=== PATIENT | female | born 1945 | race Caucasian/White ===

== ENCOUNTER → 2020-06-07 | Outpatient (CLI) | payer OTHER ==
[~2020-06-07] MED LIST: AIRDUO DIGIHAL1 EAC2 INH; AMLO5 PO; ASPI81CH PO; Bentyl10 MG PO; FURO40 PO; GABA100 PO; HUMULIN R100 UNIT/2 SC; ISOSORBIDE MONO60 MG PO; LEVSOD75 PO; LISI20 PO; MONT10T PO; NITR.4SL SL; NOVOLIN 70100 UNIT/3 SC; PLAVIX75 MG PO; POTA10T PO; TRAZ100 PO
[2020-06-07 14:07] LABS: Appearance, Urine Cloudy (Clear); Bilirubin, Urine Neg (Neg); Blood, Urine 2+ (Neg); Color, Urine Yellow (P-Yellow); Glucose Qualitative, Urine Neg (Neg); Ketones, Urine Neg (Neg); Leukocyte Esterase, Urine 3+ (Neg); Nitrite, Urine Pos (Neg); Protein, Urine 2+ (Neg); Specific Gravity, Urine 1.015 (1.003-1.022); Urobilinogen, Urine NORM (Normal)
[2020-06-07 14:21] LABS: Bacteria Many /hpf; Squamous Epithelial Cells Few /hpf (Few); White Blood Cells, Urine TNTC /hpf (0-5)
== END | disposition home or self-care (01) ==
LOC: LAB 11:30 → LAB SHORT 11:30
PROVIDERS: Nurse Practitioner Family
DX: R30.9 Painful micturition, unspecified (principal)
CPT/HCPCS: 81001; 87077; 87086; 87186

== ENCOUNTER 2020-06-10 14:23 | Inpatient (IN) | payer OTHER ==
[~2020-06-10] VITALS: Ht 165.1 cm; Wt 229.0 kg
[2020-06-10 14:50] LABS: BASOPHILS ABSOLUTE AUTO 0.11 K/mm3 (0.00-0.23); BASOPHILS PERCENT AUTO 1 % (0-2); EOSINOPHILS ABSOLUTE AUTO 0.28 K/mm3 (0.00-0.68); EOSINOPHILS PERCENT AUTO 2 % (0-6); Hematocrit 48.6 % (33.0-51.0); Hemoglobin 14.7 g/dL (11.5-16.0); IMMATURE GRAN ABSOLUTE AUTO 0.16 K/mm3 (0.00-0.10); IMMATURE GRAN PERCENT AUTO 1 % (0-1); LYMPHOCYTES PERCENT AUTO 27 % (21-46); MONOCYTES ABSOLUTE AUTO 1.36 K/mm3 (0.16-1.47); MONOCYTES PERCENT AUTO 11 % (4-13); Mean Corpuscular HGB 29.7 pg (26.0-34.0); Mean Corpuscular HGB Conc 30.2 g/dL (31.5-36.5); Mean Corpuscular Volume 98 fL (80-100); Mean Platelet Volume 8.9 fL (9.1-12.4); NEUTROPHILS ABSOLUTE AUTO 7.51 K/mm3 (1.96-9.15); NEUTROPHILS PERCENT AUTO 58 % (41-73); NRBC ABSOLUTE 0.08 K/mm3 (0.00-0.02); NRBC Auto 0.6 /100 WBC (0.0-0.2); Platelet Count 225 K/mm3 (150-400); RDW Coefficient Variation 13.7 % (11.7-14.2); RDW Standard Deviation 49.2 fL (35.1-46.3); Red Blood Cell Count 4.95 M/mm3 (3.80-5.20); White Blood Cell Count 12.92 K/mm3 (4.00-11.30)
[2020-06-10 15:11] LABS: Albumin, Blood 2.8 g/dL (3.4-5.0); Albumin/Globulin Ratio 0.7 (0.8-1.8); Bilirubin, Total 0.4 mg/dL (0.1-1.0); Bun/Creatinine Ratio 21.1 (12.0-20.0); Calcium, Blood 10.1 mg/dL (8.5-10.1); Creatinine, Blood 1.33 mg/dL (0.40-1.00); Globulin, Blood 4.2 g/dL (2.2-4.0); Potassium, Blood 5.7 mmol/L (3.5-5.5); Troponin I 0.017 ng/mL (0.000-0.040)
[2020-06-10] MEDS ORDERED: PLAVIX75 MG PO (17:59)
[2020-06-10] MEDS ORDERED: NOVOLIN 70100 UNIT/3 SC (17:59)
[2020-06-10] MEDS ORDERED: GABA100 PO (17:59)
[2020-06-10] MEDS ORDERED: LISI20 PO (17:59)
[2020-06-10] MEDS ORDERED: MONT10T PO (18:00)
[2020-06-10] MEDS ORDERED: ISOSORBIDE MONO60 MG PO (18:00)
[2020-06-10] MEDS ORDERED: HUMULIN R100 UNIT/2 SC (18:06)
[2020-06-10 20:25] LABS: PO2 Arterial 69.3 mmHg (80-100); pH Blood Arterial 7.28 (7.35-7.45)
[2020-06-10 20:26] LABS: PCO2 Arterial 74.1 mmHg (35-45)
[2020-06-10 21:12] LABS: International Normalized Ratio 0.99; Prothrombin Time Results 10.6 Sec (9.7-11.5)
[2020-06-10] MEDS ORDERED: Bentyl10 MG PO (22:00)
[2020-06-11 05:02] LABS: PCO2 Arterial 75 mmHg (35-45); PO2 Arterial 74.1 mmHg (80-100); pH Blood Arterial 7.28 (7.35-7.45)
[2020-06-11 05:09] LABS: BASOPHILS ABSOLUTE AUTO 0.12 K/mm3 (0.00-0.23); BASOPHILS PERCENT AUTO 1 % (0-2); EOSINOPHILS ABSOLUTE AUTO 0.35 K/mm3 (0.00-0.68); EOSINOPHILS PERCENT AUTO 3 % (0-6); Hematocrit 45.5 % (33.0-51.0); Hemoglobin 13.5 g/dL (11.5-16.0); IMMATURE GRAN ABSOLUTE AUTO 0.05 K/mm3 (0.00-0.10); IMMATURE GRAN PERCENT AUTO 0 % (0-1); LYMPHOCYTES PERCENT AUTO 30 % (21-46); MONOCYTES ABSOLUTE AUTO 1.35 K/mm3 (0.16-1.47); MONOCYTES PERCENT AUTO 12 % (4-13); Mean Corpuscular HGB 29.8 pg (26.0-34.0); Mean Corpuscular HGB Conc 29.7 g/dL (31.5-36.5); Mean Corpuscular Volume 100 fL (80-100); NEUTROPHILS ABSOLUTE AUTO 6.04 K/mm3 (1.96-9.15); NEUTROPHILS PERCENT AUTO 53 % (41-73); NRBC ABSOLUTE 0.07 K/mm3 (0.00-0.02); NRBC Auto 0.6 /100 WBC (0.0-0.2); Platelet Count 194 K/mm3 (150-400); RDW Coefficient Variation 13.7 % (11.7-14.2); RDW Standard Deviation 50.6 fL (35.1-46.3); Red Blood Cell Count 4.53 M/mm3 (3.80-5.20); White Blood Cell Count 11.31 K/mm3 (4.00-11.30)
[2020-06-11 05:41] LABS: Bun/Creatinine Ratio 20.3 (12.0-20.0); Calcium, Blood 9.7 mg/dL (8.5-10.1); Creatinine, Blood 1.58 mg/dL (0.40-1.00); Potassium, Blood 5.2 mmol/L (3.5-5.5)
--- NOTE | 2020-06-11 06:13 | NUR ---
SHIFT SUMMARY RECIEVED REPORT FROM NATHAN SAL. PATIENT ARRIVED TO FLOOR VIA STRETCHER AND WAS SLID TO THE BED. SWITCHED TO BARIATRIC BED DUE TO PATIENT SIZE. PATIENT DENIES CHEST PAIN FOR ME BUT STATES SHE NORMALLY ACHES ALL OVER. PT STATES SHE IS INCONTINENT OF BLADDER BUT USES [facility]SC FOR BOWEL MOVEMENTS AND TRANSFERS WITH A WALKER. TWO PERSON ASSIST WITH REPOSITONING AND BRIEF CHANGES. PATIENT HAS BEEN ALERT AND ORIENTED ALL SHIFT. VSS, NO ACUTE CHANGES. 02 SATS >90% ON 3L VIA NC. CALL LIGHT IN REACH.
--- NOTE | 2020-06-11 08:00 | NUR ---
PT LAYING IN BED WATCHING TV, A/OX3, PLEASANT AND COOPERATIVE WITH CARE, FOLLOWS COMMANDS WELL, DENIES PAIN, STATES SHE HAD A GOOD NIGHT, BUT CAME IN LAST NIGHT, LUNGS ARE CLEAR DIM IN BASES, RESP EVEN AND UNLABORED, NO COUGH NOTED, IS ON 3 LITERS 02 VIA N/C, HRR, TELE IN PLACE RUNNING SR PER MONITOR, SEE STRIP, 1+ PITTING EDEMA NOTED TO B/E LE, PPP+1, CAP REFILL <3SEC, VS STABLE, AFEBRILE, IV SITE IS CLEAR AND PATENT, BTX4, ABD FLAT SOFT NONTENDER, VOIDS WITH OUT DIFF, SKIN HAS A SORE TO THE LEFT SIDE OF HER PANIS, MAEW, IS BED REST/BOUND, YUMIKO, WILL REPOSITION HER REGULARLY, CALL LIGHT IN REACH.
--- NOTE | 2020-06-11 09:35 | NUR ---
Echocardiogram using 0.75ml of Definity contrast performed.
--- NOTE | 2020-06-11 12:25 | NUR ---
Update: Tele notified RN that Pt had a run of V-Tack. Pt assessed. States that she doesn't feel any different then she has since her echo. Physician was notified. Pt sitting up finishing lunch. Call light in reach. Will monitor.
[2020-06-11] MEDS ORDERED: ASPI81CH PO (16:15)
[2020-06-11] MEDS ORDERED: AMLO5 PO (16:16)
[2020-06-11] MEDS ORDERED: TRAZ100 PO (16:17)
[2020-06-11] MEDS ORDERED: LEVSOD75 PO (16:20)
[2020-06-11] MEDS ORDERED: NITR.4SL SL (16:21)
--- NOTE | 2020-06-11 18:41 | NUR ---
pt doing well, no complaints, placed a urinary device on her anthony area to suction the urine, to help keep her dryer, spouce was in to see her today, no acute changes this shift, call kaylie in reach.
--- NOTE | 2020-06-11 21:55 | NUR ---
ASSUMED CARE OF PATIENT AT APPROXIMATELY 1905 FROM ANDRA Piper RN. PATIENT ALERT AND ORIENTED X4. PATIENT REPORTS PAIN WHEN MOVING DUE TO SORE ON LEFT HIP THAT SHE SAID WAS BLISTERS THAT ARE DRAINING. PATIENT ABLE TO TURN ON SIDE WITH ASSISTANCE WITH STAFF. PATIENT DENIES DIZZINESS OR NAUSEA. SB W/ 1ST DEGREE AND PVC'S ON TELE; OXYGEN SATURATION ABOVE 90% ON 1LPM VIA NC TITRATED DOWN FROM 3 AT START OF SHIFT; CPAP IN ROOM FOR SLEEPING. PATIENT REPORTS SHE DOESNT SLEEP WELL. PUREWICK CHANGED; BED SATURATED IN URINE; LIFT SHEET CHANGED; NYSTATIN APPLIED TO FOLDS. PIV S/L. PATIENT CURRENTLY RESTING IN BED; CALL LIGHT IN REACH; BED IN LOWEST POSISTION.
[2020-06-12 04:45] LABS: Hematocrit 44.8 % (33.0-51.0); Hemoglobin 13.4 g/dL (11.5-16.0); Mean Corpuscular HGB 29.8 pg (26.0-34.0); Mean Corpuscular HGB Conc 29.9 g/dL (31.5-36.5); Mean Corpuscular Volume 100 fL (80-100); NRBC ABSOLUTE 0.03 K/mm3 (0.00-0.02); NRBC Auto 0.3 /100 WBC (0.0-0.2); Platelet Count 171 K/mm3 (150-400); RDW Coefficient Variation 13.6 % (11.7-14.2); RDW Standard Deviation 50.2 fL (35.1-46.3); White Blood Cell Count 10.25 K/mm3 (4.00-11.30)
[2020-06-12 05:07] LABS: Albumin, Blood 2.4 g/dL (3.4-5.0); Anion Gap 5 mmol/L (6-16); Blood Urea Nitrogen 33 mg/dL (8-24); Bun/Creatinine Ratio 21.9 (12.0-20.0); CO2, Blood 30 mmol/L (21-32); Calcium, Blood 9.2 mg/dL (8.5-10.1); Chloride, Blood 104 mmol/L (98-108); Creatinine, Blood 1.51 mg/dL (0.40-1.00); Glomerular Filtration Rate 36 (60-); Glucose, Blood 129 mg/dL (70-99); Magnesium, Blood 1.9 mg/dL (1.6-2.4); Phosphorus, Blood 3.6 mg/dL (2.5-4.9); Potassium, Blood 4.5 mmol/L (3.5-5.5); Sodium, Blood 139 mmol/L (136-145)
[2020-06-12 05:21] LABS: PCO2 Arterial 67.4 mmHg (35-45); PO2 Arterial 61.7 mmHg (80-100); pH Blood Arterial 7.33 (7.35-7.45)
--- NOTE | 2020-06-12 06:30 | NUR ---
PATIENT SLEPT ABOUT SEVEN HOURS LAST NIGHT. DID NOT SLEEP MUCH AFTER 3 AM DUE TO FEELING NAUSEOUS AND SWEATY; REFUSED ZOFRAN. VSS. NO OTHER ACUTE CHANGES TO REPORT.
--- NOTE | 2020-06-12 08:00 | NUR ---
PT LAYING IN BED WATCHING TV, SHE IS A/OX3, PLEASANT AND COOPERATIVE WITH CARE, FOLLOWS COMMANDS WELL, DENIES COMPLAINTS, STATES SHE SLEPT WELL LAST NIGHT, BUT THE CPAP WAS NOT WORKING FOR HER, EXPLAINED THAT HER CO2 IS BETTER THIS AM, LUNGS ARE CLEAR IN UPPER MICHAUD, DIM IN BASES, RESP EVEN AND UNLABORED, NO COUGH NOTED, HRR, TELE IN PLACE RUNNING SB WITH PAC'S, TRACE EDEMA, IS IMPROVING, PPP FAINT, CAP REFILL <3SEC, VS STABLE, AFEBRILE, IV SITE IS CLEAR AND PATENT, BTX4, ABD LARGE SOFT NONTENDER, HAS A NONINDWELLING URINE DEVICE IN PLACE, SKIN HAS SOME RED AREAS UNDER PANUS, TX WITH ANTIFUNGAL AND KEEPING PILLOW CASES IN BETWEEN FOLDS, MOVES UPPER EXT WELL, HELPS TO TURN IN BED, SHE IS BED BOUND, YUMIKO, CALL LIGHT IN REACH.
--- NOTE | 2020-06-12 13:19 | NUR ---
pt had a bed bath and linen change this am, doing ok, no acute changes or needs, call light in reach.
--- NOTE | 2020-06-12 17:57 | NUR ---
PT LAYING IN BED WATCHING TV, IN GOOD SPIRITS, SPOKE TO SPOUCE ON THE PHONE, NO ACUTE CHANGES THIS SHIFT, CALL LIGHT IN REACH.
--- NOTE | 2020-06-12 22:14 | NUR ---
ASSUMED CARE OF PATIENT AT APPROXIMATELY 1910 FROM ANDRA Piper RN. PATIENT ALERT AND ORIENTED X4. PATIENT REPORTS PAIN WHEN MOVING DUE TO LEFT SIDE HURTING; PATIENT ABLE TO TURN ON SIDE WITH ASSISTANCE WITH STAFF. PATIENT DENIES DIZZINESS OR NAUSEA. SB W/ 1ST DEGREE AND PVC'S ON TELE; OXYGEN SATURATION ABOVE 90% ON 1LPM VIA NC; CPAP IN ROOM FOR SLEEPING. NYSTATIN APPLIED TO FOLDS. PIV S/L. PATIENT CURRENTLY RESTING IN BED; CALL LIGHT IN REACH; BED IN LOWEST POSISTION.
[2020-06-13 09:17] LABS: Albumin, Blood 2.6 g/dL (3.4-5.0); Anion Gap 3 mmol/L (6-16); Blood Urea Nitrogen 30 mg/dL (8-24); Bun/Creatinine Ratio 21.6 (12.0-20.0); CO2, Blood 39 mmol/L (21-32); Calcium, Blood 9.1 mg/dL (8.5-10.1); Chloride, Blood 99 mmol/L (98-108); Creatinine, Blood 1.39 mg/dL (0.40-1.00); Glomerular Filtration Rate 39 (60-); Glucose, Blood 143 mg/dL (70-99); Phosphorus, Blood 3.7 mg/dL (2.5-4.9); Potassium, Blood 4.2 mmol/L (3.5-5.5); Sodium, Blood 141 mmol/L (136-145)
--- NOTE | 2020-06-13 22:36 | NUR ---
ASSUMED CARE OF PATIENT AT APPROXIMATELY 1910 FROM NEIL Lee RN. PATIENT ALERT AND ORIENTED X4. PATIENT REPORTS PAIN WITH REPOSISTIONING; PATIENT ABLE TO TURN ON SIDE WITH ASSISTANCE WITH STAFF. PATIENT DENIES DIZZINESS OR NAUSEA. MEDICAL NO TELE STATUS; OXYGEN SATURATION ABOVE 90% ON 1LPM VIA NC. PUREWICK IN PLACE. PIV S/L. PATIENT CURRENTLY RESTING IN BED; CALL LIGHT IN REACH; BED IN LOWEST POSISTION.
[2020-06-14 05:04] LABS: Albumin, Blood 2.5 g/dL (3.4-5.0); Anion Gap 3 mmol/L (6-16); Blood Urea Nitrogen 30 mg/dL (8-24); Bun/Creatinine Ratio 21.7 (12.0-20.0); CO2, Blood 39 mmol/L (21-32); Calcium, Blood 9.2 mg/dL (8.5-10.1); Chloride, Blood 98 mmol/L (98-108); Creatinine, Blood 1.38 mg/dL (0.40-1.00); Glomerular Filtration Rate 40 (60-); Glucose, Blood 103 mg/dL (70-99); Phosphorus, Blood 3.3 mg/dL (2.5-4.9); Potassium, Blood 4.1 mmol/L (3.5-5.5); Sodium, Blood 140 mmol/L (136-145)
--- NOTE | 2020-06-14 06:13 | NUR ---
PATIENT SLEPT ABOUT EIGHT HOURS LAST NIGHT; PUREWICK CONTAMINATED WITH STOOL; ATTENDS IN PLACE FOR INCONTINENCE. NO OTHER ACUTE CHANGES TO REPORT. WILL CONTINUE TO MONITOR AND ASSESS UNTIL END OF SHIFT.
[2020-06-14] MEDS ORDERED: FURO40 PO (12:47)
[2020-06-14] MEDS ORDERED: AIRDUO DIGIHAL1 EAC2 INH (12:47)
[2020-06-14] MEDS ORDERED: POTA10T PO (12:48)
--- NOTE | 2020-06-14 15:47 | NUR ---
PT WAS DISCHARGED TO HOME TODAY WITH DISCHARGE ORDERS, PT REQUIRING 2L OF O2 PER HOME O2 EVAL RESULT, ORDER SENT TO [facility] PER WIRE WEAVER CLOTH. NO ACUTE CHANGE FOR THE SHIFT, VITALS HAS BEEN STABLE. DISCHARGE MEDICAYIONS AND INSTRUCTIONS DISCLOSED WTIH THE PT, PT VERBALIZED UNDERSTANDING. TRANSPORTATION SET UP THROUGH [facility], [facility] ARRIVED PRIOR TO DISCHARGE FOR TEMPORARY O2 CANISTER, O2 TO BE DELIVERED DIRECTLY TO HOME. ALL BELONGINGS SENT WITH PT.
== END 2020-06-14 15:35 | disposition home health service (06) | DRG 205 ==
LOC: ER 14:23 → PCU 21:31
PROVIDERS: Emergency Medicine; ADMIT Internal Medicine
PROC: 3E0234Z Introduction of Serum, Toxoid and Vaccine into Muscle, Percutaneous Approach (ICD-10-PCS; principal; 2020-06-10)
DX: E66.2 Morbid (severe) obesity with alveolar hypoventilation (principal); I50.31 Acute diastolic (congestive) heart failure; J96.21 Acute and chronic respiratory failure with hypoxia; J96.22 Acute and chronic respiratory failure with hypercapnia; I13.0 Hypertensive heart and chronic kidney disease with heart failure and stage 1 through stage 4 chronic kidney disease, or unspecified chronic kidney disease; N18.4 Chronic kidney disease, stage 4 (severe); Z68.45 Body mass index [BMI] 70 or greater, adult; N17.9 Acute kidney failure, unspecified; I71.2 Thoracic aortic aneurysm, without rupture; E11.22 Type 2 diabetes mellitus with diabetic chronic kidney disease; G89.29 Other chronic pain; E87.5 Hyperkalemia; E11.40 Type 2 diabetes mellitus with diabetic neuropathy, unspecified; Z23 Encounter for immunization; E03.9 Hypothyroidism, unspecified; I45.10 Unspecified right bundle-branch block; J45.909 Unspecified asthma, uncomplicated; I25.10 Atherosclerotic heart disease of native coronary artery without angina pectoris; I25.2 Old myocardial infarction; Z87.440 Personal history of urinary (tract) infections; Z91.19 Patient's noncompliance with other medical treatment and regimen; Z79.4 Long term (current) use of insulin; Z79.02 Long term (current) use of antithrombotics/antiplatelets
CPT/HCPCS: 36415; 36600; 71045; 80048; 80053; 80069; 82803; 82947; 83735; 83880; 84100; 84484; 85025; 85027; 85379; 85610; 85730; 93005; 93010; 93970; 94640; 94660; 94760; 94761; 94762; 96365; 96375; 97110; 97161; 99285-25; A9270; C8929; J0696; J1650; J1815; J1940; J7050; Q2038; Q9957

== ENCOUNTER → 2020-06-21 | Outpatient (CLI) | payer OTHER ==
[2020-06-21 15:45] LABS: Source, Urine Clean Catch
[2020-06-21 16:46] LABS: BASOPHILS ABSOLUTE AUTO 0.14 K/mm3 (0.00-0.23); BASOPHILS PERCENT AUTO 1 % (0-2); EOSINOPHILS ABSOLUTE AUTO 0.42 K/mm3 (0.00-0.68); EOSINOPHILS PERCENT AUTO 4 % (0-6); Hematocrit 49.2 % (33.0-51.0); Hemoglobin 15.2 g/dL (11.5-16.0); IMMATURE GRAN ABSOLUTE AUTO 0.01 K/mm3 (0.00-0.10); IMMATURE GRAN PERCENT AUTO 0 % (0-1); LYMPHOCYTES ABSOLUTE AUTO 3.92 K/mm3 (0.84-5.20); LYMPHOCYTES PERCENT AUTO 34 % (21-46); MONOCYTES ABSOLUTE AUTO 1.15 K/mm3 (0.16-1.47); MONOCYTES PERCENT AUTO 10 % (4-13); Mean Corpuscular HGB 30.2 pg (26.0-34.0); Mean Corpuscular HGB Conc 30.9 g/dL (31.5-36.5); Mean Corpuscular Volume 98 fL (80-100); Mean Platelet Volume 9.7 fL (9.1-12.4); NEUTROPHILS ABSOLUTE AUTO 5.74 K/mm3 (1.96-9.15); NEUTROPHILS PERCENT AUTO 51 % (41-73); Platelet Count 217 K/mm3 (150-400); RDW Coefficient Variation 13.2 % (11.7-14.2); RDW Standard Deviation 47.4 fL (35.1-46.3); Red Blood Cell Count 5.04 M/mm3 (3.80-5.20); White Blood Cell Count 11.38 K/mm3 (4.00-11.30)
[2020-06-21 16:49] LABS: Appearance, Urine Clear (Clear); Bilirubin, Urine Neg (Neg); Blood, Urine Neg (Neg); Color, Urine Yellow (P-Yellow); Glucose Qualitative, Urine Neg (Neg); Ketones, Urine Neg (Neg); Leukocyte Esterase, Urine Neg (Neg); Nitrite, Urine Neg (Neg); Protein, Urine Neg (Neg); Specific Gravity, Urine 1.005 (1.003-1.022); Urobilinogen, Urine NORM (Normal)
[2020-06-21 17:14] LABS: Bun/Creatinine Ratio 30.9 (12.0-20.0); Creatinine, Blood 1.39 mg/dL (0.40-1.00); Potassium, Blood 4.8 mmol/L (3.5-5.5)
== END | disposition home or self-care (01) ==
LOC: LAB HH 15:42
PROVIDERS: Nurse Practitioner Family
DX: E11.9 Type 2 diabetes mellitus without complications (principal); I11.0 Hypertensive heart disease with heart failure; I50.30 Unspecified diastolic (congestive) heart failure; N39.0 Urinary tract infection, site not specified
CPT/HCPCS: 80048; 81003; 83036; 85025

== ENCOUNTER → 2020-07-26 | Outpatient (CLI) | payer OTHER ==
[2020-07-26 15:12] LABS: Bun/Creatinine Ratio 36.1 (12.0-20.0); Calcium, Blood 9.2 mg/dL (8.5-10.1); Creatinine, Blood 1.47 mg/dL (0.40-1.00); Potassium, Blood 5.4 mmol/L (3.5-5.5)
== END | disposition home or self-care (01) ==
LOC: LAB HH 11:58
PROVIDERS: Nurse Practitioner Family
DX: I13.0 Hypertensive heart and chronic kidney disease with heart failure and stage 1 through stage 4 chronic kidney disease, or unspecified chronic kidney disease (principal); I50.30 Unspecified diastolic (congestive) heart failure; N18.4 Chronic kidney disease, stage 4 (severe)
CPT/HCPCS: 80048

== ENCOUNTER → 2020-08-11 | Outpatient (CLI) | payer OTHER ==
[2020-08-11 15:42] LABS: Bun/Creatinine Ratio 32.9 (12.0-20.0); Calcium, Blood 9.2 mg/dL (8.5-10.1); Creatinine, Blood 1.55 mg/dL (0.40-1.00)
== END | disposition home or self-care (01) ==
LOC: LAB HH 11:30 → LAB SHORT 11:30
PROVIDERS: Nurse Practitioner Family
DX: I13.0 Hypertensive heart and chronic kidney disease with heart failure and stage 1 through stage 4 chronic kidney disease, or unspecified chronic kidney disease (principal); I50.9 Heart failure, unspecified; N18.9 Chronic kidney disease, unspecified
CPT/HCPCS: 80048

== ENCOUNTER → 2021-06-14 | Outpatient (CLI) | payer OTHER ==
[2021-06-14 16:29] LABS: CHOL/HDL RATIO 4.2; Cholesterol 146 mg/dL (50-200); Free Thyroxine 1.09 ng/dL (0.70-1.60); HDL Cholesterol 35 mg/dL (>39); LDL/HDL RATIO 2.3; Low Density Lipoprotein Chol 81 mg/dL (0-110); Triglycerides 150 mg/dL (30-160); Very Low Density Lipoprot Chol 30 mg/dL (6-32)
[2021-06-15 08:11] LABS: BASO (ABSOLUTE) 0.1 x10E3/uL (0.0-0.2); BASOS 1 % (Not Estab.); EOS 5 % (Not Estab.); EOS (ABSOLUTE) 0.4 x10E3/uL (0.0-0.4); HEMATOCRIT 40.5 % (34.0-46.6); IMMATURE GRANULOCYTES 0 % (Not Estab.); LYMPHS 45 % (Not Estab.); LYMPHS (ABSOLUTE) 3.3 x10E3/uL (0.7-3.1); MCH 30.8 pg (26.6-33.0); MCHC 32.1 g/dL (31.5-35.7); MCV 96 fL (79-97); MONOCYTES 11 % (Not Estab.); MONOCYTES(ABSOLUTE) 0.8 x10E3/uL (0.1-0.9); NEUTROPHILS 38 % (Not Estab.); NEUTROPHILS (ABSOLUTE) 2.8 x10E3/uL (1.4-7.0); PLATELETS 193 x10E3/uL (150-450); RBC 4.22 x10E6/uL (3.77-5.28); RDW 12.2 % (11.7-15.4); WBC 7.3 x10E3/uL (3.4-10.8)
[2021-06-15 09:11] LABS: A/G RATIO 1.2 (1.2-2.2); BILIRUBIN, TOTAL 0.5 mg/dL (0.0-1.2); CALCIUM, SERUM 9.5 mg/dL (8.7-10.3); CREATININE, SERUM 1.72 mg/dL (0.57-1.00); ESTIM. AVG GLU (EAG) 174 mg/dL (.); GLOBULIN, TOTAL 2.9 g/dL (1.5-4.5); HEMOGLOBIN A1C 7.7 % (4.8-5.6); POTASSIUM, SERUM 5.4 mmol/L (3.5-5.2); PROTEIN, TOTAL, SERUM 6.3 g/dL (6.0-8.5); TSH 16.2 uIU/mL (0.450-4.500)
== END | disposition home or self-care (01) ==
LOC: LAB SHORT 11:40
PROVIDERS: Nurse Practitioner Family
DX: E03.9 Hypothyroidism, unspecified (principal); E78.5 Hyperlipidemia, unspecified; Z79.4 Long term (current) use of insulin
CPT/HCPCS: 36415; 80053; 80061; 83036; 84439; 84443; 85025

== ENCOUNTER → 2021-09-29 | Outpatient (CLI) | payer OTHER ==
[2021-09-29 12:22] LABS: BASOPHILS ABSOLUTE AUTO 0.09 K/mm3 (0.00-0.23); BASOPHILS PERCENT AUTO 1 % (0-2); EOSINOPHILS ABSOLUTE AUTO 0.34 K/mm3 (0.00-0.68); EOSINOPHILS PERCENT AUTO 4 % (0-6); Hemoglobin 11.8 g/dL (11.5-16.0); IMMATURE GRAN ABSOLUTE AUTO 0.01 K/mm3 (0.00-0.10); IMMATURE GRAN PERCENT AUTO 0 % (0-1); LYMPHOCYTES ABSOLUTE AUTO 3.04 K/mm3 (0.84-5.20); LYMPHOCYTES PERCENT AUTO 40 % (21-46); MONOCYTES ABSOLUTE AUTO 0.94 K/mm3 (0.16-1.47); MONOCYTES PERCENT AUTO 12 % (4-13); Mean Corpuscular HGB 31.1 pg (26.0-34.0); Mean Corpuscular HGB Conc 31.1 g/dL (31.5-36.5); Mean Corpuscular Volume 100 fL (80-100); Mean Platelet Volume 9.9 fL (9.1-12.4); NEUTROPHILS ABSOLUTE AUTO 3.28 K/mm3 (1.96-9.15); NEUTROPHILS PERCENT AUTO 43 % (41-73); Platelet Count 226 K/mm3 (150-400); RDW Coefficient Variation 12.9 % (11.7-14.2); RDW Standard Deviation 47.6 fL (35.1-46.3); Red Blood Cell Count 3.79 M/mm3 (3.80-5.20)
[2021-09-29 12:24] LABS: Alanine Aminotransfer (ALT/SGP 42 U/L (12-78); Albumin, Blood 2.9 g/dL (3.4-5.0); Albumin/Globulin Ratio 0.7 (0.8-1.8); Alk Phos 138 U/L (50-136); Anion Gap 3 mmol/L (6-16); Aspartate Aminotrans (AST/SGOT 46 U/L (12-37); Bilirubin, Total 0.4 mg/dL (0.1-1.0); Blood Urea Nitrogen 49 mg/dL (8-24); Bun/Creatinine Ratio 27.4 (12.0-20.0); CHOL/HDL RATIO 3.6; CO2, Blood 41 mmol/L (21-32); Calcium, Blood 9.7 mg/dL (8.5-10.1); Chloride, Blood 95 mmol/L (98-108); Cholesterol 136 mg/dL (50-200); Creatinine, Blood 1.79 mg/dL (0.40-1.00); Globulin, Blood 3.9 g/dL (2.2-4.0); Glomerular Filtration Rate 28 (60-); Glucose, Blood 140 mg/dL (70-99); HDL Cholesterol 38 mg/dL (>39); LDL/HDL RATIO 1.8; Low Density Lipoprotein Chol 67 mg/dL (0-110); Potassium, Blood 4.5 mmol/L (3.5-5.5); Sodium, Blood 139 mmol/L (136-145); Total Protein, Blood 6.8 g/dL (6.4-8.2); Triglycerides 154 mg/dL (30-160); Very Low Density Lipoprot Chol 30 mg/dL (6-32)
== END | disposition home or self-care (01) ==
LOC: LAB SHORT 11:12 → LAB 11:12
PROVIDERS: Nurse Practitioner Family
DX: E03.9 Hypothyroidism, unspecified (principal); E78.5 Hyperlipidemia, unspecified; E11.9 Type 2 diabetes mellitus without complications; Z79.4 Long term (current) use of insulin
CPT/HCPCS: 80053; 80061; 83036; 84443; 85025

== ENCOUNTER → 2021-12-22 | Outpatient (CLI) | payer OTHER ==
[2021-12-22 15:08] LABS: BASOPHILS ABSOLUTE AUTO 0.05 K/mm3 (0.00-0.23); BASOPHILS PERCENT AUTO 1 % (0-2); EOSINOPHILS ABSOLUTE AUTO 0.24 K/mm3 (0.00-0.68); EOSINOPHILS PERCENT AUTO 4 % (0-6); Hematocrit 35.8 % (33.0-51.0); Hemoglobin 11.1 g/dL (11.5-16.0); IMMATURE GRAN ABSOLUTE AUTO 0.01 K/mm3 (0.00-0.10); IMMATURE GRAN PERCENT AUTO 0 % (0-1); LYMPHOCYTES ABSOLUTE AUTO 2.72 K/mm3 (0.84-5.20); LYMPHOCYTES PERCENT AUTO 41 % (21-46); MONOCYTES ABSOLUTE AUTO 0.74 K/mm3 (0.16-1.47); MONOCYTES PERCENT AUTO 11 % (4-13); Mean Corpuscular HGB 31.3 pg (26.0-34.0); Mean Corpuscular Volume 101 fL (80-100); Mean Platelet Volume 10.1 fL (9.1-12.4); NEUTROPHILS ABSOLUTE AUTO 2.88 K/mm3 (1.96-9.15); NEUTROPHILS PERCENT AUTO 43 % (41-73); Platelet Count 181 K/mm3 (150-400); RDW Coefficient Variation 12.6 % (11.7-14.2); RDW Standard Deviation 47.5 fL (35.1-46.3); Red Blood Cell Count 3.55 M/mm3 (3.80-5.20); White Blood Cell Count 6.64 K/mm3 (4.00-11.30)
[2021-12-22 15:22] LABS: Albumin, Blood 2.5 g/dL (3.4-5.0); Albumin/Globulin Ratio 0.7 (0.8-1.8); Bilirubin, Total 0.4 mg/dL (0.1-1.0); Bun/Creatinine Ratio 24.1 (12.0-20.0); Calcium, Blood 9.1 mg/dL (8.5-10.1); Creatinine, Blood 1.41 mg/dL (0.40-1.00); Globulin, Blood 3.6 g/dL (2.2-4.0); Potassium, Blood 4.9 mmol/L (3.5-5.5); Thyroid Stimulating Hormone 10.3 uIU/mL (0.360-4.800); Total Protein, Blood 6.1 g/dL (6.4-8.2)
[2021-12-23 06:09] LABS: HIV AB/P24 AG SCREEN Non Reactive (Non Reactive)
== END | disposition home or self-care (01) ==
LOC: LAB SHORT 12:24 → LAB 12:24
PROVIDERS: Nurse Practitioner Family
DX: Z11.59 Encounter for screening for other viral diseases (principal); E11.21 Type 2 diabetes mellitus with diabetic nephropathy; I50.30 Unspecified diastolic (congestive) heart failure; E03.9 Hypothyroidism, unspecified; Z79.4 Long term (current) use of insulin
CPT/HCPCS: 80053; 83036; 84443; 85025; 87389

== ENCOUNTER → 2022-04-06 | Outpatient (CLI) | payer OTHER ==
[2022-04-06 14:59] LABS: BASOPHILS ABSOLUTE AUTO 0.08 K/mm3 (0.00-0.23); BASOPHILS PERCENT AUTO 1 % (0-2); EOSINOPHILS ABSOLUTE AUTO 0.34 K/mm3 (0.00-0.68); EOSINOPHILS PERCENT AUTO 5 % (0-6); Hematocrit 35.5 % (33.0-51.0); Hemoglobin 11.1 g/dL (11.5-16.0); IMMATURE GRAN ABSOLUTE AUTO 0.01 K/mm3 (0.00-0.10); IMMATURE GRAN PERCENT AUTO 0 % (0-1); LYMPHOCYTES ABSOLUTE AUTO 3.28 K/mm3 (0.84-5.20); LYMPHOCYTES PERCENT AUTO 44 % (21-46); MONOCYTES ABSOLUTE AUTO 0.87 K/mm3 (0.16-1.47); MONOCYTES PERCENT AUTO 12 % (4-13); Mean Corpuscular HGB 31.4 pg (26.0-34.0); Mean Corpuscular HGB Conc 31.3 g/dL (31.5-36.5); Mean Corpuscular Volume 100 fL (80-100); NEUTROPHILS ABSOLUTE AUTO 2.92 K/mm3 (1.96-9.15); NEUTROPHILS PERCENT AUTO 39 % (41-73); Platelet Count 247 K/mm3 (150-400); RDW Coefficient Variation 12.8 % (11.7-14.2); RDW Standard Deviation 47.5 fL (35.1-46.3); Red Blood Cell Count 3.54 M/mm3 (3.80-5.20)
[2022-04-06 17:44] LABS: Albumin, Blood 2.7 g/dL (3.4-5.0); Albumin/Globulin Ratio 0.7 (0.8-1.8); Bilirubin, Total 0.5 mg/dL (0.1-1.0); Calcium, Blood 9.5 mg/dL (8.5-10.1); Creatinine, Blood 1.68 mg/dL (0.40-1.00); Globulin, Blood 3.9 g/dL (2.2-4.0); Percent Saturation 36.8 % (15.0-50.0); Potassium, Blood 4.4 mmol/L (3.5-5.5); Thyroid Stimulating Hormone 4.79 uIU/mL (0.360-4.800); Total Protein, Blood 6.6 g/dL (6.4-8.2)
== END ==
LOC: LAB 13:34 → LAB SHORT 13:34
PROVIDERS: Nurse Practitioner Family
DX: E03.9 Hypothyroidism, unspecified (principal); E11.22 Type 2 diabetes mellitus with diabetic chronic kidney disease; L65.9 Nonscarring hair loss, unspecified; N18.30 Chronic kidney disease, stage 3 unspecified; Z79.4 Long term (current) use of insulin; D63.1 Anemia in chronic kidney disease
CPT/HCPCS: 80053; 82728; 83036; 83540; 83550; 84443; 85025

== ENCOUNTER → 2023-03-06 | Outpatient (CLI) | payer OTHER ==
[2023-03-06 19:24] LABS: BASOPHILS ABSOLUTE AUTO 0.06 K/mm3 (0.00-0.23); BASOPHILS PERCENT AUTO 1 % (0-2); EOSINOPHILS ABSOLUTE AUTO 0.33 K/mm3 (0.00-0.68); EOSINOPHILS PERCENT AUTO 4 % (0-6); Hematocrit 33.2 % (33.0-51.0); Hemoglobin 10.3 g/dL (11.5-16.0); IMMATURE GRAN ABSOLUTE AUTO 0.02 K/mm3 (0.00-0.10); IMMATURE GRAN PERCENT AUTO 0 % (0-1); LYMPHOCYTES ABSOLUTE AUTO 3.38 K/mm3 (0.84-5.20); LYMPHOCYTES PERCENT AUTO 44 % (21-46); MONOCYTES ABSOLUTE AUTO 0.85 K/mm3 (0.16-1.47); MONOCYTES PERCENT AUTO 11 % (4-13); Mean Corpuscular HGB 30.6 pg (26.0-34.0); Mean Corpuscular Volume 99 fL (80-100); Mean Platelet Volume 10.1 fL (9.1-12.4); NEUTROPHILS ABSOLUTE AUTO 3.04 K/mm3 (1.96-9.15); NEUTROPHILS PERCENT AUTO 40 % (41-73); Platelet Count 220 K/mm3 (150-400); RDW Coefficient Variation 12.9 % (11.7-14.2); RDW Standard Deviation 46.2 fL (35.1-46.3); Red Blood Cell Count 3.37 M/mm3 (3.80-5.20); White Blood Cell Count 7.68 K/mm3 (4.00-11.30)
[2023-03-06 22:26] LABS: Ferritin, Serum 139 ng/mL (8-252); Iron Serum 70 ug/dL (50-170); Very Low Density Lipoprot Chol 32 mg/dL (6-32)
[2023-03-06 22:28] LABS: Alanine Aminotransfer (ALT/SGP 32 U/L (12-78); Albumin, Blood 2.7 g/dL (3.4-5.0); Albumin/Globulin Ratio 0.7 (0.8-1.8); Alk Phos 163 U/L (50-136); Anion Gap Unable to Calculate mmol/L (6-16); Aspartate Aminotrans (AST/SGOT 40 U/L (12-37); Bilirubin, Total 0.3 mg/dL (0.1-1.0); Blood Urea Nitrogen 67 mg/dL (8-24); Bun/Creatinine Ratio 36.2 (12.0-20.0); CHOL/HDL RATIO 5.2; CO2, Blood 42 mmol/L (21-32); Calcium, Blood 9.5 mg/dL (8.5-10.1); Chloride, Blood 96 mmol/L (98-108); Cholesterol 166 mg/dL (50-200); Creatinine, Blood 1.85 mg/dL (0.40-1.00); Globulin, Blood 4.1 g/dL (2.2-4.0); Glomerular Filtration Rate 28 (60-); Glucose, Blood 172 mg/dL (70-99); HDL Cholesterol 32 mg/dL (>39); LDL/HDL RATIO 3.2; Low Density Lipoprotein Chol 102 mg/dL (0-110); Percent Saturation 28.5 % (15.0-50.0); Potassium, Blood 5.2 mmol/L (3.5-5.5); Sodium, Blood 137 mmol/L (136-145); Total Iron Binding Capacity 246 ug/dL (250-450); Total Protein, Blood 6.8 g/dL (6.4-8.2); Triglycerides 160 mg/dL (30-160)
== END ==
LOC: LAB SHORT 18:37 → LAB 18:37
PROVIDERS: Nurse Practitioner Family
DX: E11.9 Type 2 diabetes mellitus without complications (principal); E66.01 Morbid (severe) obesity due to excess calories; E61.1 Iron deficiency; E78.5 Hyperlipidemia, unspecified; I10 Essential (primary) hypertension; D64.9 Anemia, unspecified
CPT/HCPCS: 80053; 80061; 82728; 83036; 83540; 83550; 85025

== ENCOUNTER → 2023-09-18 | Outpatient (CLI) | payer OTHER | END | disposition home or self-care (01) | LOC: LAB 15:18 → LAB SHORT 15:18 | DX: E11.65 Type 2 diabetes mellitus with hyperglycemia (principal) | CPT/HCPCS: 83880 ==

== ENCOUNTER 2024-01-16 12:22 | Day surgery (SDC) | payer OTHER ==
[~2024-01-16 12:22] MED LIST changes: +Balanced Salt Epinephrine Irrigation Solution 500 mL IR SCH; +CEPH500 PO; +Diflucan100 MG PO; +Lidocaine HCl/Pf 1% 5 ML VIAL ONE; +Lidocaine HCl/Pf 1% 5 ML VIAL XX SCH; +Moxifloxacin HCL 0.5 MG/0.1 ML 0.4MLSYR LEFTEYE SCH; +Moxifloxacin HCL 0.5 MG/0.1 ML 0.4MLSYR RIGHTEYE SCH; +NS 500 ML IV ONE; +PHENYLEPHRINE\\TROPICAMIDE\\TETRACAINE OPHTHALMIC DILATING SOLN LEFTEYE PRN; +PHENYLEPHRINE\\TROPICAMIDE\\TETRACAINE OPHTHALMIC DILATING SOLN RIGHTEYE PRN; +Povidone-Iodine 450 DROP/30 ML Solution LEFTEYE SCH; +Povidone-Iodine 450 DROP/30 ML Solution RIGHTEYE SCH; +Triamcinolone Inj Susp 40 MG / ML 1ML Vial INJ SCH; +Triamcinolone Inj Susp 40 MG / ML 1ML Vial ONE
[2024-01-16] MEDS ORDERED: Midazolam HCl 1MG / ML 2ML Vial ONE (13:30)
[2024-01-16] MEDS ORDERED: FentaNYL Citrate 50 MCG/ML 2 ML Injection ONE (13:30)
[2024-01-16] MEDS ORDERED: PLAVIX75 MG PO (13:49)
[2024-01-16] MEDS ORDERED: Bentyl10 MG (14:02)
[2024-01-16] MEDS ORDERED: EZETIMIBE10 M6 PO (14:02)
[2024-01-16] MEDS ORDERED: EUTHYROX150 MC1 (14:03)
[2024-01-16] MEDS ORDERED: NS 500 ML IV ONE ×2 (14:25→15:55)
--- NOTE | 2024-01-16 14:30 | NUR ---
01/16/24 1430 Easley Renay 1320: PATIENT POSITIONED ON SURGICAL BED WITH PILLOWS, SLING, BED RAIL PADS, AND IS ATTACHED TO 3 LPM OXYGEN. 1355: ANESTHESIA NOTIFIED THAT PATIENT IS UNABLE TO BE WEIGHED SHE IS A DEPENDENT TRANSFER, UNABLE TO ASSIST HERSELF IN TRANSFERRING, AND WAS BROUGHT IN BY [facility]. PER DR [place] OK TO PROCEED. [facility] ASSISTED IN THE TRANSFER FROM THE AMBULANCE GURNEY ONTO THE SURGICAL BED.
--- NOTE | 2024-01-16 15:01 | NUR ---
01/16/24 1501 Ruth Alonzo RIGHT CATARACT START: 1430, END: 1449 LEFT CATARACT START:1500 END:
[2024-01-16 15:35] VITALS: BP 131/59
== END 2024-01-16 16:06 | disposition home or self-care (01) ==
LOC: ORSCSDS 12:22
DX: E11.36 Type 2 diabetes mellitus with diabetic cataract (principal); H25.813 Combined forms of age-related cataract, bilateral; I10 Essential (primary) hypertension; I25.2 Old myocardial infarction; I25.10 Atherosclerotic heart disease of native coronary artery without angina pectoris; Z79.02 Long term (current) use of antithrombotics/antiplatelets; Z79.4 Long term (current) use of insulin; Z79.899 Other long term (current) drug therapy
CPT/HCPCS: 82947; J2001; J2250; J3010; J3301; J7040; V2632